=== PATIENT | male | born 1960 | race Caucasian/White ===

== ENCOUNTER 2020-09-25 01:59 | Emergency (ER) | payer OTHER, SELFPAY ==
[~2020-09-25] VITALS: Ht 175.3 cm; Wt 102.1 kg
--- NOTE | 2020-09-25 02:01 | NUR ---
PT AAOX4. AMBULATORY WITH STEADY GAIT. BIBSELF C/O MID STERNAL CP X5 DAYS. ALSO NOTED SWOLLEN LYMPH NODE. PT PLACED IN BED 7 ON ASL INTERPRETER AND PULSE OX. VSS. BERUMEN AT BEDSIDE FOR EVAL. AWAIITNG ORDERS. WILL COTNINUE TO MONITOR.
--- NOTE | 2020-09-25 02:10 | NUR ---
EMT AT BEDSIDE FOR EKG.
--- NOTE | 2020-09-25 02:14 | NUR ---
COVID SWABBED. SENT TO LAB.
[2020-09-25] MEDS ORDERED: ASPIRIN 81 MG TAB.CHEW ONE (02:15)
--- NOTE | 2020-09-25 02:18 | NUR ---
LINE INITIATED RAC 20G, BLOOD COLLECTED, SENT TO LAB.
[2020-09-25] MEDS ORDERED: ASPIRIN 81 MG TAB.CHEW PO ONE (02:30)
[2020-09-25 02:35] LABS: CALCIUM, SERUM 10.4 mg/dL (8.5-10.1); CREATININE 0.9 mg/dL (0.6-1.3); POTASSIUM 3.9 mmol/L (3.5-5.1)
[2020-09-25 02:38] LABS: BASOPHILS # (AUTO) 0.1 /CMM (0.0-0.2); BASOPHILS % (AUTO) 1.4 % (0.0-2.0); EOSINOPHILS % (AUTO) 1.4 % (0.0-6.0); HEMATOCRIT 47 % (39-51); HEMOGLOBIN 15.9 g/dL (13.5-17.5); LYMPHOCYTES # (AUTO) 1.5 /CMM (0.8-4.8); LYMPHOCYTES % (AUTO) 14.4 % (20.0-44.0); MEAN CORPUSCULAR HGB CONC 34 g/dl (31.0-36.0); MEAN CORPUSCULAR VOLUME 89 fL (80-96); MONOCYTES # (AUTO) 0.6 /CMM (0.1-1.30); MONOCYTES % (AUTO) 6.3 % (2.0-12.0); NEUTROPHILS # (AUTO) 7.8 /CMM (1.8-8.9); NEUTROPHILS % (AUTO) 76.5 % (43.0-81.0); PLATELET COUNT (AUTO) 173 /CMM (150-450); RED BLOOD CELL COUNT(AUTO) 5.31 MIL/uL (4.5-6.0); WHITE BLOOD COUNT (AUTO) 10.2 K/uL (4.3-11.0)
[2020-09-25 02:51] LABS: ALBUMIN 4.2 g/dL (3.4-5.0); BILIRUBIN,DIRECT 0.1 mg/dL (0.0-0.2); BILIRUBIN,TOTAL 0.5 mg/dL (0.2-1.0); TOTAL PROTEIN, SERUM 7.7 g/dL (6.4-8.2)
[2020-09-25] MEDS ORDERED: NITROGLYCERIN 0.4 MG/TAB BOTTLE ONE (02:52)
[2020-09-25] MEDS ORDERED: NITROGLYCERIN PACKET 1 GM PACKET TD ONE (03:00)
[2020-09-25] MEDS ORDERED: IV NS 0.9% 500 ML BAG IV ONE (03:00)
[2020-09-25] MEDS ORDERED: NITROGLYCERIN 0.4 MG/TAB BOTTLE SL ONE (03:00)
[2020-09-25] MEDS ORDERED: NITROGLYCERIN PACKET 1 GM PACKET ONE (03:06)
--- NOTE | 2020-09-25 03:06 | NUR ---
DR. HAAS SPEAKING WITH DR. 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
--- NOTE | 2020-09-25 03:20 | NUR ---
SPOKE WITH ETHEL FROM [facility] REGARDING POSSIBLE TRANSFER. CLINICAL INFORMATION FAXED PER REQUEST ([phone])
--- NOTE | 2020-09-25 03:20 | NUR ---
EKG AT BEDSIDE
[2020-09-25 03:23] VITALS: BP 125/67
[2020-09-25] MEDS ORDERED: ENOXAPARIN SODIUM 100 MG/ML DISP.SYRIN SQ ONE ×2 (03:28→03:30)
[2020-09-25] MEDS ORDERED: ONDANSETRON HCL/PF 4 MG/2 ML VIAL ONE (03:28)
[2020-09-25] MEDS ORDERED: HYDROMORPHONE 1 MG/1 ML DISP.SYRIN ONE (03:28)
[2020-09-25] MEDS ORDERED: HYDROMORPHONE 1 MG/1 ML DISP.SYRIN IV ONE (03:30)
[2020-09-25] MEDS ORDERED: ONDANSETRON HCL/PF - ER 4 MG/2 ML VIAL IV ONE (03:30)
--- NOTE | 2020-09-25 03:55 | NUR ---
TRANSFER INFORMATION: PT WILL BE TRANSFERRED TO [facility] FOR HIGHER LEVEL OF CARE ACCEPTING MD: DR. ZAIDI CCT ETA [id number], NURSE TO NURSE REPORT TO BE GIVEN ON ARRIVAL
--- NOTE | 2020-09-25 04:25 | NUR ---
[facility] BED ASSIGNMENT: [id number] NUMBER FOR REPORT: [phone]
--- NOTE | 2020-09-25 04:32 | NUR ---
REPORT GIVEN TO FLORA MEDLEY FOR LILIANA SJP
--- NOTE | 2020-09-25 04:38 | NUR ---
REPORT GIVEN TO [facility] CCT. PT STABLE FOR TRANSFER
== END 2020-09-25 04:46 | disposition short-term general hospital (02) ==
LOC: ER 02:01
DX: I21.9 Acute myocardial infarction, unspecified (principal); Z20.828 Contact with and (suspected) exposure to other viral communicable diseases; Z87.891 Personal history of nicotine dependence
CPT/HCPCS: 36415; 71045; 80048; 80076; 83880; 84484; 85025; 85378; 87426; 93005 ×2; 96372; 96374; 96375; 99291; C9803; J1170; J1650; J2405 ×2; J7030; J7040